=== PATIENT | male | born 1965 | race Caucasian/White ===

== ENCOUNTER 2019-11-12 08:55 | Emergency (ER) | payer SELFPAY ==
--- NOTE | 2019-11-12 10:12 | ER Document Report ---
ED Respiratory Problem - General Chief Complaint: Shortness Of Breath Stated Complaint: SHORTNESS OF BREATH/COUGH/CHILLS Time Seen by Provider: 11/12/19 09:45 Primary Care Provider: RAVINDER CLAIRE [NO LOCAL MD] - Follow up as needed Notes: CHIEF COMPLAINT: Multiple complaints HPI: 54-year-old male who is otherwise healthy presenting for multiple complaints. Patient states over the last 3 days he has had sinus congestion, cough, slight shortness of breath no chest pain no abdominal pain. States he has had chills and body ache. No dysuria. No diarrhea. ROS: See HPI - all other systems were reviewed and are otherwise negative Constitutional: no fever Eyes: no drainage, no blurred vision ENT: + runny nose, no sore throat Cardiovascular: no chest pain Resp: + SOB, + cough GI: no vomiting, no diarrhea, no abdominal pain : no dysuria Integumentary: no rash Allergy: no hives Musculoskeletal: no extremity pain or swelling Neurological: no numbness/tingling, no weakness MEDICATIONS: I agree with the patient medications as charted by the RN. ALLERGIES: I agree with the allergies as charted by the RN. PAST MEDICAL HISTORY/PAST SURGICAL HISTORY: Reviewed and agree as charted by RN. SOCIAL HISTORY: Reviewed and agree as charted by RN. FAMILY HISTORY: No significant familial comorbid conditions directly related to patient complaint EXAM: Reviewed vital signs as charted by RN. CONSTITUTIONAL: Alert and oriented and responds appropriately to questions. Well-appearing; well-nourished HEAD: Normocephalic; atraumatic EYES: PERRL; Conjunctivae clear, sclerae non-icteric ENT: normal nose; + rhinorrhea; moist mucous membranes; pharynx without lesions noted, no uvula edema or deviation, no tonsillar hypertrophy, phonation normal NECK: Supple without meningismus; non-tender; no cervical lymphadenopathy, no masses CARD: RRR; no murmurs, no clicks, no rubs, no gallops; symmetric distal pulses RESP: Normal chest excursion without splinting or tachypnea; breath sounds clear and equal bilaterally; no wheezes, no rhonchi, no rales, pulse oximetry 99% on room air not hypoxic ABD/GI: Normal bowel sounds; non-distended; soft, non-tender, no rebound, no guarding; no palpable organomegaly or masses. BACK: The back appears normal and is non-tender to palpation, there is no CVA tenderness EXT: Normal ROM in all joints; non-tender to palpation; no cyanosis, no effusions, no edema SKIN: Normal color for age and race; warm; dry; good turgor; no acute lesions noted NEURO: Moves all extremities equally; Motor and sensory function intact PSYCH: The patient's mood and manner are appropriate. Grooming and personal hygiene are appropriate. MDM: 54-year-old male presenting with flulike symptoms over the last 3 days. Will obtain COVID study. Given the patient's age will obtain chest x-ray and baseline screening labs to ensure that there are no other significant abnormalities - Related Data Allergies/Adverse Reactions: No Known Allergies Allergy (Unverified 11/12/19 10:04) Home Medications: Metformin Past Medical History - Social History Smoking Status: Unknown if Ever Smoked Family History: Reviewed & Not Pertinent - Past Medical History Cardiac Medical History: Reports: Hx Hypertension Physical Exam - Vital signs Vitals: Temp Pulse Resp BP Pulse Ox 98.8 F 74 18 129/83 H 99 11/12/19 09:35 11/12/19 09:35 11/12/19 09:35 11/12/19 09:35 11/12/19 09:35 Course - Re-evaluation Re-evalutation: 11/12/19 10:14 Chest x-ray on my review does not show evidence of a significant infiltrate or cardiomegaly 11/12/19 11:57 Lab work does not show any acute abnormalities this is likely a viral process, patient will be a person under investigation for COVID-19, self quarantine at home pending results - Vital Signs Vital signs: Temp Pulse Resp BP Pulse Ox 98.8 F 74 18 129/83 H 99 11/12/19 09:35 11/12/19 09:35 11/12/19 09:35 11/12/19 09:35 11/12/19 09:35 - Laboratory Result Diagrams: 11/12/19 10:33 11/12/19 10:33 Laboratory results interpreted by me: 11/12/19 11/12/19 11/12/19 10:33 10:33 10:33 WBC 3.8 L [place] % (Auto) 14.5 H BUN 21 H Urine Protein 30 H Urine Glucose (UA) >=500 H Discharge - Discharge Clinical Impression: Myalgia, Person under investigation for COVID-19 Condition: Stable Disposition: HOME, SELF-CARE Additional Instructions: Your lab work and chest x-ray did not show acute findings today. You are considered a person under investigation for COVID-19 at this time. Self quarantine at home, use the albuterol inhaler for cough or shortness of breath. Take the Voltaren for body ache. Hydrate well. Test results take 2 to 5 days and you should hear from someone at the hospital about your test results. Return for worsening condition or problems Prescriptions: Albuterol Sulfate [Proair HFA Inhalation Aerosol 8.5 gm MDI] 2 puff IH Q4H PRN #1 mdi PRN Reason: Diclofenac Sodium [Voltaren 50 Mg Tablet.] 50 mg PO BID #20 tablet. Referrals: REKHA GARCIA DO [NO LOCAL MD] - Follow up as needed
--- NOTE | 2019-11-12 10:52 | RADIOLOGY REPORT (SQ) ---
EXAM DESCRIPTION: CHEST SINGLE VIEW IMAGES COMPLETED DATE/TIME: 11/12/2019 10:32 am REASON FOR STUDY: cough COMPARISON: None. EXAM PARAMETERS: NUMBER OF VIEWS: One view. TECHNIQUE: Single frontal radiographic view of the chest acquired. RADIATION DOSE: NA LIMITATIONS: None. FINDINGS: LUNGS AND PLEURA: No opacities, masses or pneumothorax. No pleural effusion. MEDIASTINUM AND HILAR STRUCTURES: No masses. Contour normal. HEART AND VASCULAR STRUCTURES: Heart normal in size. Normal vasculature. BONES: No acute findings. HARDWARE: None in the chest. OTHER: No other significant finding. IMPRESSION: NO ACUTE RADIOGRAPHIC FINDING IN THE CHEST. TECHNICAL DOCUMENTATION: JOB ID: [id number] 2010 [employer]- All Rights Reserved Reading location - IP/workstation name: [email or web address]
[2019-11-12 11:03] LABS: ABSOLUTE LYMPHOCYTES (AUTO) 0.6 10^3/uL (0.5-4.7); ABSOLUTE MONOCYTES (AUTO) 0.5 10^3/uL (0.1-1.4); ABSOLUTE NEUT (AUTO) 2.5 10^3/uL (1.7-8.2); BASOPHILS % (AUTO) 0.3 % (0-2); EOSINOPHILS % (AUTO) 0.8 % (0-6); HEMATOCRIT 45.8 % (37.9-51.0); HEMOGLOBIN 15.5 g/dL (13.5-17.0); LYMPHOCYTES % (AUTO) 16.8 % (13-45); MEAN CORPUSCULAR HEMOGLOBIN 30.3 pg (27.0-33.4); MEAN CORPUSCULAR HGB CONC 33.9 g/dL (32.0-36.0); MEAN CORPUSCULAR VOLUME 89 fl (80-97); MONOCYTES % (AUTO) 14.5 % (3-13); PLATELET COUNT 165 10^3/uL (150-450); RED BLOOD COUNT 5.13 10^6/uL (4.35-5.55); RED CELL DISTRIBUTION WIDTH 13.7 % (11.5-14.0); SEGMENTED NEUTROPHILS % (AUTO) 67.6 % (42-78); TOTAL CELLS COUNTED % (AUTO) 100 %; WHITE BLOOD COUNT 3.8 10^3/uL (4.0-10.5)
[2019-11-12 11:07] LABS: APPEARANCE,URINE SLIGHTLY-CLOUDY; BILIRUBIN,URINE NEGATIVE (NEGATIVE); COLOR,URINE YELLOW; GLUCOSE, URINE >=500 mg/dL (NEGATIVE); KETONES,URINE NEGATIVE (NEGATIVE); LEUKOCYTE ESTERASE,URINE NEGATIVE (NEGATIVE); NITRITE,URINE NEGATIVE (NEGATIVE); PROTEIN,URINE 30 mg/dL (NEGATIVE); URINE SPECIFIC GRAVITY 1.028; UROBILINOGEN,URINE NEGATIVE mg/dL (<2.0)
[2019-11-12 11:11] LABS: ALKALINE PHOSPHATASE 72 U/L (38-126); ANION GAP 8 (5-19); ASPARTATE AMINO TRANSFERASE 34 U/L (17-59); BILIRUBIN,DIRECT 0.4 mg/dL (0.0-0.4); BILIRUBIN,TOTAL 0.6 mg/dL (0.2-1.3); BLOOD UREA NITROGEN 21 mg/dL (7-20); CALCIUM 9.1 mg/dL (8.4-10.2); CARBON DIOXIDE 25 mmol/L (22-30); CHLORIDE 107 mmol/L (98-107); GLUCOSE 89 mg/dL (75-110); POTASSIUM 4.4 mmol/L (3.6-5.0); TOTAL PROTEIN 7.3 g/dL (6.3-8.2)
[2019-11-12 11:13] LABS: ADD MANUAL MICROSCOPIC YES; RBC,URINE NONE SEEN /HPF; WBC,URINE RARE /HPF
[2019-11-12 11:14] LABS: HYALINE CASTS, URINE 0-1 /LPF
[2019-11-12 12:47] VITALS: BP 126/90
--- NOTE | 2019-11-13 11:19 | EKG REPORT ---
SEVERITY:- NORMAL ECG - SINUS RHYTHM : Confirmed by: Marcia Schmitz MD 13-Nov-2019 11:18:38
== END 2019-11-12 12:45 | disposition home or self-care (01) ==
LOC: ER 08:55
DX: U07.1 COVID-19 (principal); M79.10 Myalgia, unspecified site; R06.02 Shortness of breath; R05 Cough; R09.81 Nasal congestion; R09.89 Other specified symptoms and signs involving the circulatory and respiratory systems; J34.89 Other specified disorders of nose and nasal sinuses; I10 Essential (primary) hypertension; Z79.84 Long term (current) use of oral hypoglycemic drugs
CPT/HCPCS: 93005; 99285; 36415; 85025; 87635; 80053; 81001; 84484; 71045; 93010; C9803

== ENCOUNTER 2019-11-17 09:33 | Emergency (ER) | payer SELFPAY ==
[2019-11-17] MEDS ORDERED: NORMAL SALINE 1000 ML 1,000 ML IV ONE (10:01)
[2019-11-17 10:34] LABS: ABSOLUTE LYMPHOCYTES (AUTO) 0.4 10^3/uL (0.5-4.7); ABSOLUTE MONOCYTES (AUTO) 0.4 10^3/uL (0.1-1.4); ABSOLUTE NEUT (AUTO) 5.7 10^3/uL (1.7-8.2); BASOPHILS % (AUTO) 0.5 % (0-2); EOSINOPHILS % (AUTO) 0.2 % (0-6); HEMATOCRIT 46.6 % (37.9-51.0); HEMOGLOBIN 15.9 g/dL (13.5-17.0); MEAN CORPUSCULAR HEMOGLOBIN 30.3 pg (27.0-33.4); MEAN CORPUSCULAR HGB CONC 34.2 g/dL (32.0-36.0); MEAN CORPUSCULAR VOLUME 89 fl (80-97); MONOCYTES % (AUTO) 6.7 % (3-13); PLATELET COUNT 201 10^3/uL (150-450); RED BLOOD COUNT 5.26 10^6/uL (4.35-5.55); RED CELL DISTRIBUTION WIDTH 13.6 % (11.5-14.0); SEGMENTED NEUTROPHILS % (AUTO) 86.6 % (42-78); TOTAL CELLS COUNTED % (AUTO) 100 %; WHITE BLOOD COUNT 6.6 10^3/uL (4.0-10.5)
[2019-11-17 10:47] LABS: ALBUMIN 3.9 g/dL (3.5-5.0); ALKALINE PHOSPHATASE 82 U/L (38-126); ANION GAP 9 (5-19); ASPARTATE AMINO TRANSFERASE 43 U/L (17-59); BILIRUBIN,DIRECT 0.5 mg/dL (0.0-0.4); BILIRUBIN,TOTAL 0.8 mg/dL (0.2-1.3); BLOOD UREA NITROGEN 18 mg/dL (7-20); CALCIUM 8.7 mg/dL (8.4-10.2); CARBON DIOXIDE 28 mmol/L (22-30); CHLORIDE 102 mmol/L (98-107); GLUCOSE 128 mg/dL (75-110); POTASSIUM 4.4 mmol/L (3.6-5.0); TOTAL PROTEIN 7.3 g/dL (6.3-8.2)
--- NOTE | 2019-11-17 11:29 | RADIOLOGY REPORT (SQ) ---
EXAM DESCRIPTION: CTA CHEST IMAGES COMPLETED DATE/TIME: 11/17/2019 11:16 am REASON FOR STUDY: sob, + covid COMPARISON: None. TECHNIQUE: CT scan of the chest performed using helical scanning technique with dynamic intravenous contrast injection. Images reviewed with lung, soft tissue and bone windows. Reconstructed coronal and sagittal MPR images reviewed. Additional 3 dimensional post-processing performed to develop Maximal Intensity Projection images (CT P). All images stored on PACS. All CT scanners at this facility use dose modulation, iterative reconstruction, and/or weight based d osing when appropriate to reduce radiation dose to as low as reasonably achievable (ALARA). [facility]: Dose Right [facility]: CareDose [facility]: Dose Right [facility]: Teradose 4D [facility]: Sweetie High CONTRAST TYPE AND DOSE: contrast/concentration: Isovue 350.00 mmol/ml; Total Contrast Delivered: 71. 0 ml; Total Saline Delivered: 70.0 ml Contrast bolus adequate for pulmonary arteries and aorta. RENAL FUNCTION: BUN 21 creatinine 1.15. RADIATION DOSE: CT Rad equipment meets quality standard of care and radiation dose reduction techniq ues were employed. CTDIvol: 13.2 - 22.6 mGy. DLP: 872 mGy-cm. . LIMITATIONS: None. FINDINGS: LUNGS AND PLEURA: Scattered linear densities and ground-glass opacities, right greater anai n left. No pleural effusions or pleural calcifications. AORTA AND GREAT VESSELS: No aneurysm. No dissection. HEART: No pericardial effusion. No significant coronary artery calcifications. PULMONARY ARTERIES: No emboli visualized in the main pulmonary arteries or the segmental branches. HILAR AND MEDIASTINAL STRUCTURES: No identified masses or abnormal nodes. HARDWARE: None in the chest. UPPER ABDOMEN: Gallstones. Limited exam. THYROID AND OTHER SOFT TISSUES: No masses. No adenopathy. BONES: No acute or significant finding. 3D MIPS: Confirm above findings. OTHER: No other significant finding. IMPRESSION: 1. NORMAL CTA OF THE CHEST. NO PULMONARY EMBOLI. 2. SCATTERED GROUND-GLASS OPACITIES, RIGHT GREATER THAN LEFT, CONSISTENT WITH INFECTION/ INFLAMMATION . 3. GALLSTONES. COMMENT: Quality ID # [id number]: Final reports with documentation of one or more dose reduction techniques (e.g., Automated exposure control, adjustment of the mA and/or kV according to patient size, use of iterative reconstruction technique) TECHNICAL DOCUMENTATION: JOB ID: [id number] [employer]- All Rights Reserved Reading location - IP/workstation name: [email or web address]
[2019-11-17 12:09] LABS: C-REACTIVE PROTEIN 140.9 mg/L (<10.0)
--- NOTE | 2019-11-17 12:39 | ER Document Report ---
ED General - General Chief Complaint: Shortness Of Breath Stated Complaint: SHORT OF BREATH,COUGH,NO TASTE Time Seen by Provider: 11/17/19 09:51 Mode of Arrival: Ambulatory Information source: Patient - HPI Notes: Patient presents complaining of generalized body aches vomiting and some shortness of breath. He states that he was tested for COVID approximately 3 days ago and it was positive. He states today he began to feel worse. He states the main symptoms are generalized body aches, vomiting, and shortness of breath. The symptoms seem to be worse with exertion and better with rest. They do radiate throughout his body. They are moderate in intensity and fairly const ant. He states he has no known chronic medical problems and takes no medications daily. He states he is not a smoker. He states he believes he contracted COVID from his sister. - Related Data Allergies/Adverse Reactions: No Known Allergies Allergy (Verified 11/17/19 10:36) Past Medical History - General Information source: Patient - Social History Smoking Status: Never Smoker Frequency of alcohol use: None Drug Abuse: None Family History: Reviewed & Not Pertinent Patient has homicidal ideation: No - Past Medical History Cardiac Medical History: Reports: Hx Hypertension Endocrine Medical History: Reports: Hx Diabetes Mellitus Type 2 Musculoskeletal Medical History: Reports Hx Arthritis Review of Systems - Review of Systems Constitutional: Chills, Fever, Malaise Respiratory: Cough, Short of breath Gastrointestinal: Vomiting -: Yes All other systems reviewed and negative Physical Exam - Vital signs Vitals: Temp Pulse Resp BP Pulse Ox 98.0 F 86 16 121/77 95 11/17/19 09:41 11/17/19 09:41 11/17/19 09:41 11/17/19 09:41 11/17/19 09:41 Interpretation: Normal - General General appearance: Appears well, Alert - HEENT Head: Normocephalic, Atraumatic Eyes: Normal Pupils: PERRL - Respiratory Respiratory status: No respiratory distress Chest status: Nontender Breath sounds: Normal - Cardiovascular Rhythm: Regular Heart sounds: Normal auscultation Murmur: No - Abdominal Inspection: Normal Distension: No distension - Back Back: Normal, Nontender - Extremities General upper extremity: Normal inspection, Normal color, Normal ROM General lower extremity: Normal inspection, Normal color, Normal ROM, Normal weight bearing. No: Nguyễn's sign - Neurological Neuro grossly intact: Yes Cognition: Normal Orientation: AAOx4 Yo Coma Scale Eye Opening: Spontaneous [place] Coma Scale Verbal: Oriented Yo Coma Scale Motor: Obeys Commands [place] Coma Scale Total: 15 Speech: Normal Motor strength normal: LUE, RUE, LLE, RLE Sensory: Normal - Psychological Associated symptoms: Normal affect, Normal mood - Skin Skin Moisture: Dry Skin Color: Normal Course - Re-evaluation Re-evalutation: 11/17/19 12:41 Patient presents stating that he is positive for COVID. Patient was here ap proximate 3 days ago and he does have a positive COVID test. He states he is having some shortness of breath as well as some body aches and vomiting. He states he feels significantly better after a liter of fluid. Patient was ambulated and had a saturation of 96% after ambulation. All of his vitals are stable. Patient does not meet any of the criteria for inpatient admission. Patient will be discharged home with precaution instructions. The patient was evaluated during a global COVID-19 pandemic and that diagnosis was suspected/considered upon their initial presentation. Their evaluation, treatment and testing was consistent with current guidelines for patients who present with complaints or symptoms and may be related to COVID-19. - Vital Signs Vital signs: Temp Pulse Resp BP Pulse Ox 98.0 F 86 26 H 151/90 H 98 11/17/19 09:45 11/17/19 09:41 11/17/19 12:07 11/17/19 12:07 11/17/19 12:07 - Laboratory Result Diagrams: 11/17/19 10:20 11/17/19 10:20 Laboratory results interpreted by me: 11/17/19 11/17/19 11/17/19 10:20 10:20 11:20 Lymph % (Auto) 6.0 L Absolute Lymphs (auto) 0.4 L Seg Neutrophils % 86.6 H Glucose 128 H Direct Bilirubin 0.5 H Lactate Dehydrogenase 275 H C-Reactive Protein 140.9 H - Diagnostic Test Radiology reviewed: Image reviewed, Reports reviewed - EKG Interpretation by Me EKG shows normal: Sinus rhythm Rate: Normal - 81 Rhythm: NSR Carman/QRS: No: Right axis deviation, Left axis deviation Discharge - Discharge Clinical Impression: Pneumonia due to COVID-19 virus Condition: Stable Disposition: HOME, SELF-CARE Instructions: Viral Syndrome ([facility]), COVID-19 Guidance for Persons Under Investigation Additional Instructions: You are positive for COVID. If you begin to have any further symptoms with significant vomiting, shortness of breath, dizziness or other significant concerns please return for evaluation. Please try to stay well-hydrated and drink lots of fluids. Please quarantine yourself as instructed. You may not return to work till symptom free and at least 10 days from start of symptoms. Please send someone to [employer] or a drug store to purchase a pulse oximeter for you. Take your pulse ox several times per day and return to the ED immediately if your pulse ox is below 90%. Forms: Return to Work Referrals: [facility] [Provider Group] - Follow up in 3-5 days
--- NOTE | 2019-11-17 12:58 | EKG REPORT ---
SEVERITY:- BORDERLINE ECG - SINUS RHYTHM NONSPECIFIC ST-T CHANGES- INFERIOR LEADS : Confirmed by: Ronaldo Cao MD 17-Nov-2019 12:57:12
[2019-11-17 13:13] VITALS: BP 134/97
== END 2019-11-17 13:14 | disposition home or self-care (01) ==
LOC: ER 09:33
DX: U07.1 COVID-19 (principal); J12.89 Other viral pneumonia; K80.20 Calculus of gallbladder without cholecystitis without obstruction; R11.10 Vomiting, unspecified; R06.02 Shortness of breath; R52 Pain, unspecified; R05 Cough; R50.9 Fever, unspecified; R53.81 Other malaise; I10 Essential (primary) hypertension; E11.9 Type 2 diabetes mellitus without complications
CPT/HCPCS: 93005; 99285; 96360; 96361; 36415; 82728; 83615; 85025; 86140; 80053; 84484; 85379; 71275; 93010; J7030